=== PATIENT | female | born 1945 | race Caucasian/White ===

== ENCOUNTER 2018-03-06 10:12 | Emergency (ER) | payer MEDICARE, OTHER ==
[~2018-03-06] VITALS: Ht 157.5 cm; Wt 65.0 kg
[~2018-03-06 10:12] MED LIST: HYDR-4383 PO; ONDA8TAB9 PO; SOLI5TAB2 CORPAK; nature thyroid
[2018-03-06 10:19] VITALS: BP 149/69
[2018-03-06] MEDS ORDERED: CEPH-572 PO (11:05)
== END 2018-03-06 11:58 | disposition home or self-care (01) ==
LOC: ER 10:12
DX: L76.82 Other postprocedural complications of skin and subcutaneous tissue (principal); Z88.5 Allergy status to narcotic agent; Z87.442 Personal history of urinary calculi
CPT/HCPCS: 99283

== ENCOUNTER 2018-04-08 09:58 | Emergency (ER) | payer MEDICARE, OTHER ==
[~2018-04-08] VITALS: Ht 157.5 cm; Wt 65.0 kg
[2018-04-08 10:04] VITALS: BP 157/62
== END 2018-04-08 11:30 | disposition home or self-care (01) ==
LOC: ER 10:00
DX: S52.612A Displaced fracture of left ulna styloid process, initial encounter for closed fracture (principal); Z88.5 Allergy status to narcotic agent; Z79.899 Other long term (current) drug therapy; W18.39XA Other fall on same level, initial encounter; Y93.02 Activity, running; Y92.89 Other specified places as the place of occurrence of the external cause; Y99.8 Other external cause status
CPT/HCPCS: 29125; 73110; 99283

== ENCOUNTER 2018-04-20 10:15 | Outpatient (CLI) | payer MEDICARE, OTHER ==
[2018-04-20 10:49] VITALS: BP 145/82
== END 2018-04-20 11:27 | disposition home or self-care (01) ==
LOC: ORTHO 10:15
PROVIDERS: ATTEND Nurse Practitioner Family
DX: M19.032 Primary osteoarthritis, left wrist (principal); F40.240 Claustrophobia; Z88.5 Allergy status to narcotic agent
CPT/HCPCS: 73110; 99213

== ENCOUNTER 2018-05-11 11:43 | Outpatient (CLI) | payer MEDICARE, OTHER ==
[2018-05-11 11:17] VITALS: BP 133/72
== END 2018-05-11 11:58 | disposition home or self-care (01) ==
LOC: ORTHO 11:43
PROVIDERS: ATTEND Nurse Practitioner Family
DX: S52.692D Other fracture of lower end of left ulna, subsequent encounter for closed fracture with routine healing (principal); S69.92XD Unspecified injury of left wrist, hand and finger(s), subsequent encounter; Z88.5 Allergy status to narcotic agent; W19.XXXD Unspecified fall, subsequent encounter
CPT/HCPCS: 73110; 99213

== ENCOUNTER 2018-06-01 11:25 | Outpatient (CLI) | payer MEDICARE, OTHER ==
[2018-06-01 11:30] VITALS: BP 135/70
== END 2018-06-01 12:15 | disposition home or self-care (01) ==
LOC: ORTHO 11:25
PROVIDERS: ATTEND Nurse Practitioner Family
DX: S52.692D Other fracture of lower end of left ulna, subsequent encounter for closed fracture with routine healing (principal); S69.92XD Unspecified injury of left wrist, hand and finger(s), subsequent encounter; Z88.5 Allergy status to narcotic agent; W18.39XD Other fall on same level, subsequent encounter
CPT/HCPCS: 73110; G0463

== ENCOUNTER 2018-06-22 11:07 | Outpatient (CLI) | payer MEDICARE, OTHER ==
[2018-06-22 11:46] VITALS: BP 127/74
== END 2018-06-22 12:03 | disposition home or self-care (01) ==
LOC: ORTHO 11:07
PROVIDERS: ATTEND Nurse Practitioner Family
DX: S69.82XD Other specified injuries of left wrist, hand and finger(s), subsequent encounter (principal); M25.832 Other specified joint disorders, left wrist; Z88.5 Allergy status to narcotic agent; X58.XXXD Exposure to other specified factors, subsequent encounter
CPT/HCPCS: 73110

== ENCOUNTER 2018-07-14 10:52 | Outpatient (CLI) | payer MEDICARE, OTHER ==
[2018-07-14 10:47] VITALS: BP 125/63
== END 2018-07-14 11:34 | disposition home or self-care (01) ==
LOC: ORTHO 10:52
PROVIDERS: ATTEND Nurse Practitioner Family
DX: S62.102D Fracture of unspecified carpal bone, left wrist, subsequent encounter for fracture with routine healing (principal); X58.XXXD Exposure to other specified factors, subsequent encounter
CPT/HCPCS: 73110; 99213

== ENCOUNTER 2018-08-13 11:23 | Outpatient (CLI) | payer MEDICARE, OTHER ==
[2018-08-13 11:43] VITALS: BP 149/87
== END 2018-08-13 12:31 | disposition home or self-care (01) ==
LOC: ORTHO 11:23
PROVIDERS: ATTEND Orthopaedic Surgery
DX: S52.612D Displaced fracture of left ulna styloid process, subsequent encounter for closed fracture with routine healing (principal); Z88.5 Allergy status to narcotic agent; X58.XXXD Exposure to other specified factors, subsequent encounter
CPT/HCPCS: 73110; 99213

== ENCOUNTER 2022-05-21 14:23 | Emergency (ER) | payer MEDICARE, OTHER ==
[~2022-05-21] VITALS: Ht 154.9 cm; Wt 63.6 kg
[2022-05-21 14:42] VITALS: BP 157/65
[2022-05-21 14:51] LABS: BASOPHILS # (AUTO) 0.1 X10'3 (0-0.2); BASOPHILS % (AUTO) 1.4 % (0-1); EOSINOPHILS # (AUTO) 0.6 X10'3 (0-0.9); HEMATOCRIT 41.1 % (35.0-45.0); HEMOGLOBIN 13.6 g/dl (12.0-16.0); LYMPHOCYTES % (AUTO) 29.4 % (21-51); MEAN CORPUSCULAR HEMOGLOBIN 30.5 PG (27.0-31.0); MEAN CORPUSCULAR VOLUME 92.5 FL (78-98); MEAN PLATELET VOLUME 9.4 FL (7.4-10.4); MONOCYTES # (AUTO) 0.6 X10'3 (0-0.9); MONOCYTES % (AUTO) 9.1 % (2-12); NEUTROPHILS # (AUTO) 3.5 X10'3 (1.8-7.7); NEUTROPHILS % (AUTO) 51.1 % (42-75); PLATELET COUNT 327 X10'3 (140-440); RED BLOOD COUNT 4.45 X10'6 (4.20-5.60); RED CELL DISTRIBUTION WIDTH 14.5 % (11.5-14.5); WHITE BLOOD COUNT 6.9 X10'3 (4.5-11.0)
[2022-05-21 15:11] LABS: ALANINE AMINOTRANSFERASE 11 U/L (12-78); ALBUMIN 3.7 G/DL (3.4-5.0); ALBUMIN/GLOBULIN RATIO 1.3 (1.1-1.5); ALKALINE PHOSPHATASE 90 IU/L (46-116); ANION GAP 9 (8-16); ASPARTATE AMINO TRANSFERASE 14 U/L (10-37); BILIRUBIN,TOTAL 0.6 MG/DL (0.1-1.0); BLOOD UREA NITROGEN 29 MG/DL (7-18); BUN/CREATININE RATIO 15.5 (6.6-38.0); CALCIUM 9.6 MG/DL (8.5-10.1); CHLORIDE 100 MMOL/L (99-107); CREATININE 1.87 MG/DL (0.40-0.90); GLUCOSE 182 MG/DL (70-104); MAGNESIUM 1.9 MG/DL (1.5-2.4); POTASSIUM 3.5 MMOL/L (3.5-5.1); SODIUM 137 MMOL/L (135-145); TOTAL CARBON DIOXIDE 28.4 MMOL/L (24-32); TOTAL PROTEIN 6.6 G/DL (6.4-8.2); eGFR 26 ML/MIN
[2022-05-21] MEDS ORDERED: iohexol 350MG/ML 100ml bottle IV ONE (18:35)
[2022-05-21] MEDS ORDERED: normal saline 1000ML IV soln IVB ONE (18:35)
== END 2022-05-21 20:55 | disposition home or self-care (01) ==
LOC: ER 14:24
DX: R06.02 Shortness of breath (principal); F41.9 Anxiety disorder, unspecified; Z86.16 Personal history of COVID-19; Z88.5 Allergy status to narcotic agent
CPT/HCPCS: 36415; 71045; 71275; 80053; 83735; 83880; 84484; 85025; 93005; 99285; J3490; J7030; Q9967

== ENCOUNTER 2024-04-24 13:20 | Emergency (ER) | payer MEDICARE, OTHER ==
[~2024-04-24] VITALS: Ht 154.9 cm; Wt 62.7 kg
[2024-04-24 13:22] VITALS: BP 144/102; PULSE 64; RESP 16; TEMP 98; O2SAT 99
[2024-04-24] MEDS ORDERED: GABA300C PO (16:11)
[2024-04-24] MEDS ORDERED: CYCL-394 PO (16:11)
== END 2024-04-24 16:20 | disposition home or self-care (01) ==
LOC: ER 13:20
DX: M54.50 Low back pain, unspecified (principal); R07.81 Pleurodynia; Z88.5 Allergy status to narcotic agent; Z79.899 Other long term (current) drug therapy
CPT/HCPCS: 71046; 99283